=== PATIENT | male | born 1940 | race African-American/Black ===

== ENCOUNTER → 2016-11-26 | Outpatient (CLI) | payer OTHER, MEDICARE ==
[2016-11-26 15:04] LABS: ANION GAP 10 (5-19); BLOOD UREA NITROGEN 26 mg/dL (7-20); CALCIUM 9.5 mg/dL (8.4-10.2); CARBON DIOXIDE 28 mmol/L (22-30); CHLORIDE 103 mmol/L (98-107); CREATININE RESULT 1.34 mg/dL (0.52-1.25); GLUCOSE 94 mg/dL (75-110); POTASSIUM 4.2 mmol/L (3.6-5.0); SODIUM 140.5 mmol/L (137-145)
== END ==
LOC: OD 13:36
PROVIDERS: ATTEND Internal Medicine Nephrology
DX: N18.2 Chronic kidney disease, stage 2 (mild) (principal)
CPT/HCPCS: 36415; 80048

== ENCOUNTER → 2017-05-21 | Outpatient (CLI) | payer OTHER, MEDICARE ==
[2017-05-21 13:40] LABS: APPEARANCE,URINE SLIGHTLY-CLOUDY; BILIRUBIN,URINE NEGATIVE (NEGATIVE); GLUCOSE, URINE NEGATIVE (NEGATIVE); KETONES,URINE NEGATIVE (NEGATIVE); LEUKOCYTE ESTERASE,URINE LARGE (NEGATIVE); NITRITE,URINE NEGATIVE (NEGATIVE); PROTEIN,URINE NEGATIVE (NEGATIVE); URINE SPECIFIC GRAVITY 1.016; UROBILINOGEN,URINE NEGATIVE mg/dL (<2.0)
[2017-05-21 13:48] LABS: ANION GAP 10 (5-19); BLOOD UREA NITROGEN 28 mg/dL (7-20); CALCIUM 9.3 mg/dL (8.4-10.2); CARBON DIOXIDE 28 mmol/L (22-30); CHLORIDE 105 mmol/L (98-107); GLUCOSE 81 mg/dL (75-110); POTASSIUM 4.1 mmol/L (3.6-5.0); SODIUM 142.8 mmol/L (137-145)
[2017-05-22 10:38] LABS: CREATININE URINE 122.5 mg/dL (Not Estab.); MICROALBUMIN URINE 19.6 ug/mL (Not Estab.)
== END ==
LOC: OD 12:23
PROVIDERS: ATTEND Internal Medicine Nephrology
DX: I12.9 Hypertensive chronic kidney disease with stage 1 through stage 4 chronic kidney disease, or unspecified chronic kidney disease (principal); N18.2 Chronic kidney disease, stage 2 (mild)
CPT/HCPCS: 36415; 80048; 81001; 82043; 82570

== ENCOUNTER → 2017-12-14 | Outpatient (CLI) | payer OTHER, MEDICARE ==
[2017-12-14 09:30] LABS: APPEARANCE,URINE SLIGHTLY-CLOUDY; BILIRUBIN,URINE NEGATIVE (NEGATIVE); COLOR,URINE YELLOW; GLUCOSE, URINE NEGATIVE (NEGATIVE); KETONES,URINE NEGATIVE (NEGATIVE); LEUKOCYTE ESTERASE,URINE LARGE (NEGATIVE); NITRITE,URINE NEGATIVE (NEGATIVE); PROTEIN,URINE NEGATIVE (NEGATIVE); URINE SPECIFIC GRAVITY 1.013; UROBILINOGEN,URINE NEGATIVE mg/dL (<2.0)
[2017-12-14 09:45] LABS: ANION GAP 8 (5-19); BLOOD UREA NITROGEN 21 mg/dL (7-20); CALCIUM 9.5 mg/dL (8.4-10.2); CARBON DIOXIDE 28 mmol/L (22-30); CHLORIDE 105 mmol/L (98-107); GLUCOSE 91 mg/dL (75-110); POTASSIUM 4.3 mmol/L (3.6-5.0)
[2017-12-15 09:39] LABS: CREATININE URINE 117.7 mg/dL (Not Estab.)
== END ==
LOC: OD 08:42
PROVIDERS: ATTEND Internal Medicine Nephrology
DX: N18.2 Chronic kidney disease, stage 2 (mild) (principal)
CPT/HCPCS: 36415; 80048; 81001; 82043; 82570

== ENCOUNTER → 2018-07-02 | Outpatient (CLI) | payer OTHER, MEDICARE ==
[2018-07-02 08:27] LABS: AMORPHOUS SEDIMENT,URINE TRACE /HPF; APPEARANCE,URINE SLIGHTLY-CLOUDY; BILIRUBIN,URINE NEGATIVE (NEGATIVE); CALCIUM OXALATE CRYSTALS,URINE FEW /HPF; COLOR,URINE YELLOW; GLUCOSE, URINE NEGATIVE (NEGATIVE); KETONES,URINE NEGATIVE (NEGATIVE); LEUKOCYTE ESTERASE,URINE LARGE (NEGATIVE); NITRITE,URINE NEGATIVE (NEGATIVE); PROTEIN,URINE NEGATIVE (NEGATIVE); URINE SPECIFIC GRAVITY 1.019
[2018-07-02 08:41] LABS: ANION GAP 8 (5-19); BLOOD UREA NITROGEN 26 mg/dL (7-20); CALCIUM 9.2 mg/dL (8.4-10.2); CARBON DIOXIDE 27 mmol/L (22-30); CHLORIDE 108 mmol/L (98-107); GLUCOSE 95 mg/dL (75-110); POTASSIUM 3.7 mmol/L (3.6-5.0); SODIUM 142.7 mmol/L (137-145)
[2018-07-03 12:37] LABS: CREATININE URINE 155.2 mg/dL (Not Estab.); MICROALBUMIN URINE 35.3 ug/mL (Not Estab.)
== END ==
LOC: OD 07:42
PROVIDERS: ATTEND Internal Medicine Nephrology
DX: N18.9 Chronic kidney disease, unspecified (principal); R31.29 Other microscopic hematuria
CPT/HCPCS: 36415; 80048; 81001; 82043; 82570

== ENCOUNTER 2020-07-25 20:25 | Emergency (ER) | payer MEDICARE, OTHER ==
--- NOTE | 2020-07-25 21:48 | ER Document Report ---
ED Medical Screen (RME) - General Chief Complaint: Urinary Problem Stated Complaint: URINARY ISSUE Time Seen by Provider: 07/25/20 21:42 Primary Care Provider: ARJUN CHOI MD [Primary Care Provider] - Follow up as needed Mode of Arrival: Wheelchair Information source: Patient Notes: Patient presents stating that he has been unable to urinate for the past 8 brain rs. Patient states he has been leaking blood to a depends. Patient had lithotripsy performed and a stent placed today as well as a prostate biopsy. Patient denies any fever nausea or vomiting. Patient does complain of lower pelvic pain. Patient denies any flank tenderness. Patient is currently taking Bactrim for UTI. I have greeted and performed a rapid initial assessment of this patient. A comprehensive ED assessment and evaluation of the patient, analysis of test results and completion of the medical decision making process will be conducted by additional ED providers. TRAVEL OUTSIDE OF THE [place] IN LAST 30 DAYS: No - Related Data Allergies/Adverse Reactions: No Known Allergies Allergy (Unverified 10/04/13 10:50) Past Medical History - Past Medical History Cardiac Medical History: Reports: Hx Hypertension - MEDS Denies: Hx Heart Attack Pulmonary Medical History: Denies: Hx Asthma Neurological Medical History: Denies: Hx Cerebrovascular Accident, Hx Seizures GI Medical History: Denies: Hx Hepatitis, Hx Hiatal Hernia, Hx Ulcer Infectious Medical History: Denies: Hx Hepatitis Past Surgical History: Denies: Hx Open Heart Surgery, Hx Pacemaker Physical Exam - Vital signs Vitals: Temp Pulse Resp BP Pulse Ox 98.4 F 58 L 16 153/70 H 100 07/25/20 20:36 07/25/20 20:36 07/25/20 20:36 07/25/20 20:36 07/25/20 20:36 - Abdominal Tenderness: Tender - Lower pelvic tenderness Course - Vital Signs Vital signs: Temp Pulse Resp BP Pulse Ox 98.4 F 58 L 16 153/70 H 100 07/25/20 20:36 07/25/20 20:36 07/25/20 20:36 07/25/20 20:36 07/25/20 20:36 Doctor's Discharge - Discharge Referrals: ARJUN CHOI MD [Primary Care Provider] - Follow up as needed
[2020-07-25] MEDS ORDERED: LIDOCAINE 2% URO-JET 5 ML KIT MM ONE (22:56)
[2020-07-25 23:42] LABS: HEMATOCRIT 33.9 % (37.9-51.0); HEMOGLOBIN 11.6 g/dL (13.5-17.0); MEAN CORPUSCULAR HEMOGLOBIN 34.4 pg (27.0-33.4); MEAN CORPUSCULAR HGB CONC 34.3 g/dL (32.0-36.0); MEAN CORPUSCULAR VOLUME 100 fl (80-97); PLATELET COUNT 173 10^3/uL (150-450); RED BLOOD COUNT 3.39 10^6/uL (4.35-5.55); WHITE BLOOD COUNT 9.1 10^3/uL (4.0-10.5)
[2020-07-25 23:53] LABS: APPEARANCE,URINE CLEAR; BILIRUBIN,URINE NEGATIVE (NEGATIVE); GLUCOSE, URINE NEGATIVE (NEGATIVE); KETONES,URINE NEGATIVE (NEGATIVE); LEUKOCYTE ESTERASE,URINE NEGATIVE (NEGATIVE); NITRITE,URINE NEGATIVE (NEGATIVE); PROTEIN,URINE 100 mg/dL (NEGATIVE); URINE SPECIFIC GRAVITY 1.014; UROBILINOGEN,URINE NEGATIVE mg/dL (<2.0)
[2020-07-25 23:54] LABS: COLOR,URINE RED
[2020-07-25 23:56] LABS: ALBUMIN 3.7 g/dL (3.5-5.0); ALKALINE PHOSPHATASE 75 U/L (38-126); ANION GAP 8 (5-19); ASPARTATE AMINO TRANSFERASE 66 U/L (17-59); BILIRUBIN,DIRECT 0.3 mg/dL (0.0-0.4); BILIRUBIN,TOTAL 0.7 mg/dL (0.2-1.3); BLOOD UREA NITROGEN 28 mg/dL (7-20); CALCIUM 8.7 mg/dL (8.4-10.2); CARBON DIOXIDE 25 mmol/L (22-30); CHLORIDE 101 mmol/L (98-107); GLUCOSE 128 mg/dL (75-110); POTASSIUM 4.9 mmol/L (3.6-5.0); TOTAL PROTEIN 6.6 g/dL (6.3-8.2)
--- NOTE | 2020-07-25 23:57 | ER Document Report ---
Entered by ROBERT DAMICO SCRIBE 07/25/20 [id number] Acting as scribe for:CHRISTIE RUIZ DO ED GI/ - General Chief Complaint: Urinary Retention Stated Complaint: URINARY ISSUE Time Seen by Provider: 07/25/20 21:42 Primary Care Provider: ARJUN CHOI MD [Primary Care Provider] - Follow up as needed Mode of Arrival: Wheelchair Information source: Patient, Relative Notes: This 79 year old male patient presents to the emergency department today with a chief complaint of urinary retention. Patient reports history of a left kidney stone and laser lithotripsy that took place today at [facility]. Patient states a stent was placed and is supposed to follow-up in x5 days. Patient states he has not urinated since his procedure today and around 3pm today produced a small amount of blood. Patient states he stopped taking aspirin x1 week ago and is not on blood thinners. TRAVEL OUTSIDE OF THE [place] IN LAST 30 DAYS: No - Related Data Allergies/Adverse Reactions: No Known Allergies Allergy (Unverified 10/04/13 10:50) Home Medications: HCTZ, losartan, atenolol, asa, allopurinol, flomax, welchol, bactrim Past Medical History - General Information source: Patient, Relative - Social History Smoking Status: Never Smoker Cigarette use (# per day): No Lives with: Family Family History: Reviewed & Not Pertinent - Past Medical History Cardiac Medical History: Reports: Hx Hypercholesterolemia, Hx Hypertension - MEDS Renal/ Medical History: Reports: Hx Kidney Stones - Left Past Surgical History: Reports: Hx Kidney (Renal Surgery) Review of Systems - Review of Systems Constitutional: No symptoms reported EENT: No symptoms reported Cardiovascular: No symptoms reported Respiratory: No symptoms reported Gastrointestinal: No symptoms reported Genitourinary: See HPI, Hematuria, Retention Male Genitourinary: No symptoms reported Musculoskeletal: No symptoms reported Skin: No symptoms reported Hematologic/Lymphatic: No symptoms reported Neurological/Psychological: No symptoms reported -: Yes All other systems reviewed and negative Physical Exam - Vital signs Vitals: Temp Pulse Resp BP Pulse Ox 98.4 F 58 L 16 153/70 H 100 07/25/20 20:36 07/25/20 20:36 07/25/20 20:36 07/25/20 20:36 07/25/20 20:36 - General General appearance: Appears well, Alert - HEENT Head: Normocephalic, Atraumatic Eyes: Normal Pupils: PERRL - Respiratory Respiratory status: No respiratory distress Chest status: Nontender Breath sounds: Normal Chest palpation: Normal - Cardiovascular Rhythm: Regular Heart sounds: Normal auscultation Murmur: No - Abdominal Distension: Distended bladder Bowel sounds: Normal Tenderness: Tender - lower abdomen - Extremities General upper extremity: Edema - Right upper extremity General lower extremity: Normal inspection. No: Edema - Neurological Neuro grossly intact: Yes Cognition: Normal Orientation: AAOx4 [place] Coma Scale Eye Opening: Spontaneous [place] Coma Scale Verbal: Oriented [place] Coma Scale Motor: Obeys Commands Harmony Coma Scale Total: 15 Speech: Normal - Psychological Associated symptoms: Normal affect, Normal mood - Skin Skin Temperature: Warm Skin Moisture: Dry Skin Color: Normal Course - Re-evaluation Re-evalutation: 07/25/20 23:49 MDM 79 year old [facility]. Has not urinated since. Tender over bladder and distended. >500 ml out from catheter. Bloody urine without clots. No fever. Feels much better with bladder empty. I have called the Urology number to update them I was given Dr. Manuel Calle at [phone] and left a message and awaiting a call back. He is already on antibiotics - sulfa based from the urologist and flomax. 07/26/20 00:18 I have discussed the pt with Dr. Calle and he will update Dr. Vega and I have also discussed with the pt and to call for follow up. - Vital Signs Vital signs: Temp Pulse Resp BP Pulse Ox 97.9 F 65 14 134/68 H 100 07/26/20 00:27 07/26/20 00:27 07/26/20 00:27 07/26/20 00:27 07/26/20 00:27 - Laboratory Result Diagrams: 07/25/20 23:31 07/25/20 23:31 Laboratory results interpreted by me: 07/25/20 07/25/20 07/25/20 23:15 23:31 23:31 RBC 3.39 L Hgb 11.6 L Hct 33.9 L MCV 100 H MCH 34.4 H RDW 15.0 H Seg Neuts % (Manual) 94 H Lymphocytes % (Manual) 1 L Abs Neuts (Manual) 8.6 H Abs Lymphs (Manual) 0.1 L Sodium 133.5 L BUN 28 H Creatinine 2.32 H Est GFR ( Amer) 33 L Est GFR (MDRD) Non-Af 27 L Glucose 128 H AST 66 H Urine Protein 100 H Urine Blood LARGE H Discharge - Discharge Clinical Impression: Acute urinary retention, Kidney stones, Renal insufficiency Hypertension Qualifiers: Hypertension type: unspecified Qualified Code(s): I10 - Essential (primary) hypertension Condition: Stable Disposition: HOME, SELF-CARE Instructions: [facility] Catheter [facility] ([facility]), Hematuria ([facility]) Additional Instructions: Call the urology office for follow up. Rest. Plenty of fluids. Please return here for abdominal pain, fever, or other problems or concerns. Referrals: ARJUN CHOI MD [Primary Care Provider] - Follow up as needed I personally performed the services described in the documentation, reviewed and edited the documentation which was dictated to the scribe in my presence, and it accurately records my words and actions.
[2020-07-26 00:08] LABS: ABSOLUTE LYMPHOCYTES# (MANUAL) 0.1 10^3/uL (0.5-4.7); ABSOLUTE MONOCYTES # (MANUAL) 0.5 10^3/uL (0.1-1.4); BASOPHILS % (MANUAL) 0 % (0-2); EOSINOPHILS % (MANUAL) 0 % (0-6); LYMPHOCYTES % (MANUAL) 1 % (13-45); MONOCYTES % (MANUAL) 5 % (3-13); SEGMENTED NEUTROPHILS % (MAN) 94 % (42-78); TOTAL CELLS COUNTED 100
[2020-07-26 00:13] LABS: ANISOCYTOSIS SLIGHT; POLYCHROMASIA SLIGHT
[2020-07-26 00:16] LABS: TOXIC GRANULATION SLIGHT
[2020-07-26 00:17] LABS: PLATELET COMMENT ADEQUATE
[2020-07-26] MEDS ORDERED: CEFTRIAXONE 1 GM/D5W RTU 1 GM/50 ML RTUPB IV ONE (00:19)
[2020-07-26] MEDS ORDERED: CEFTRIAXONE INJ 1000 MG VIAL ONE (00:23)
[2020-07-26] MEDS ORDERED: LIDOCAINE 1% INJ-PF (10 MG/ML) 30 ML SDV NEB ONE (00:23)
[2020-07-26] MEDS ORDERED: CEFTRIAXONE INJ 1000 MG VIAL IM ONE (00:23)
[2020-07-26 00:27] VITALS: BP 134/68
== END 2020-07-26 00:48 | disposition home or self-care (01) ==
LOC: ER 20:25
DX: N20.0 Calculus of kidney (principal); R33.9 Retention of urine, unspecified; I10 Essential (primary) hypertension; N28.9 Disorder of kidney and ureter, unspecified; E78.00 Pure hypercholesterolemia, unspecified; Z87.442 Personal history of urinary calculi
CPT/HCPCS: 99283; 96372; 36415; 85025; 80053; 81001; J3490; J0696; A9270